=== PATIENT | female | born 1950 | race Caucasian/White ===

== ENCOUNTER → 2016-06-28 17:07 | Outpatient (CLI) | payer MEDICARE ==
[2015-08-28 09:37] VITALS: BMI 31.6
[~2016-06-28 17:07] MED LIST: ALEVE220 MG PO; BIOTIN5 MG PO; CALCIUM 500 + D1 TAB PO; DILAUDID2 MG PO; HERCEPTIN440 MG/VIA; TYLENOL 8 HOUR650 MG PO; XANAX0.5 MG PO
== END | disposition home or self-care (01) ==
LOC: D.MAMMO 10:30
DX: C50.312 Malignant neoplasm of lower-inner quadrant of left female breast (principal); C79.31 Secondary malignant neoplasm of brain